=== PATIENT | female | born 1950 | race Caucasian/White ===

== ENCOUNTER 2021-02-24 12:01 | Emergency (ER) | payer OTHER ==
[~2021-02-24] VITALS: Ht 162.6 cm; Wt 65.8 kg
[2021-02-24] MEDS ORDERED: COZAAR25 MG PO (12:27)
[2021-02-24] MEDS ORDERED: CYMBALTA30 MG PO (12:27)
== END 2021-02-24 16:50 | disposition home or self-care (01) ==
LOC: ER 12:01 → CPU-OBS 13:03 → ER 13:03
DX: I16.1 Hypertensive emergency (principal); I10 Essential (primary) hypertension; F10.129 Alcohol abuse with intoxication, unspecified; Y90.9 Presence of alcohol in blood, level not specified; F41.8 Other specified anxiety disorders